=== PATIENT | female | born 1950 | race Hispanic/Latino ===

== ENCOUNTER 2017-06-13 20:34 | Inpatient (IN) | payer MEDICARE ==
[2017-06-13 20:00] VITALS: BP 166/97
[2017-06-13] MEDS ORDERED: ONDANSETRON HCL INJ 2 MG/ML VIAL IV PRN (21:00)
[2017-06-13] MEDS ORDERED: SODIUM CHLORIDE 0.9% 250ML 250 ML IV ONE (21:00)
[2017-06-13 21:20] VITALS: BP 166/97
[2017-06-13] MEDS ORDERED: DEXTROSE 50% SYRINGE 50 ML IV PRN (21:30)
[2017-06-13] MEDS: TRAMADOL HCL 50 MG TAB PO PRN (22:15)
[2017-06-13] MEDS: ACETAMINOPHEN 325 MG TAB PO PRN (22:30)
[2017-06-13] MEDS: ALBUTEROL/IPRATROPIUM 3 ML NEB NEB SCH (23:30)
[2017-06-13] MEDS: PIPER-TAZ 3.375 GM 50 ML IV SCH (23:36)
[2017-06-14] VITALS: BP 159/76
[2017-06-14] MEDS ORDERED: LEVEMIR100 UNIT/1 SQ (02:33)
[2017-06-14] MEDS ORDERED: MONTELUKAST SOD10 MG PO (02:33)
[2017-06-14] MEDS ORDERED: CLINDAMYCIN HC150 MG PO (02:33)
[2017-06-14] MEDS ORDERED: TRADJENTA5 MG PO (02:33)
[2017-06-14] MEDS ORDERED: METFORMIN HCL500 MG PO (02:33)
[2017-06-14] MEDS ORDERED: ULTRAM50 MG PO (02:33)
[2017-06-14] MEDS ORDERED: GABAPENTIN300 MG PO (02:33)
[2017-06-14] MEDS ORDERED: PANTOPRAZOLE SO40 MG PO (02:33)
[2017-06-14] MEDS ORDERED: LISINOPRIL10 MG PO (02:33)
[2017-06-14] MEDS: ALBUTEROL/IPRATROPIUM 3 ML NEB NEB SCH ×5 (03:15→19:15)
[2017-06-14 04:00] VITALS: BP 145/75
[2017-06-14] MEDS: TRAMADOL HCL 50 MG TAB PO PRN ×2 (04:36→09:06)
[2017-06-14] MEDS: PIPER-TAZ 3.375 GM 50 ML IV SCH (06:30)
[2017-06-14 06:44] LABS: BASOPHILS # (AUTO) 0.1 (0.0-0.1); BASOPHILS % 0.6 % (0.0-1.0); EOSINOPHILS # (AUTO) 0.2 (0.0-0.4); HEMATOCRIT 42.6 % (34.2-44.1); HEMOGLOBIN 14.2 g/dL (12.0-16.0); LYMPHOCYTES # (AUTO) 1.6 (1.0-3.2); LYMPHOCYTES % 15.3 % (18.0-39.1); MEAN CORPUSCULAR HEMOGLOBIN 28.7 pg (28-32); MEAN CORPUSCULAR HGB CONC 33.3 g/dL (31-35); MEAN CORPUSCULAR VOLUME 86.1 fL (81-99); MONOCYTES # (AUTO) 1.2 (0.2-0.8); MONOCYTES % 10.9 % (4.4-11.3); NEUTROPHILS # (AUTO) 7.5 (2.1-6.9); NEUTROPHILS % 70.8 % (38.7-80.0); PLATELET COUNT 266 x10e3/uL (140-360); RED BLOOD COUNT 4.95 x10e6/uL (3.6-5.1); RED CELL DISTRIBUTION WIDTH 13.1 % (11.7-14.4)
[2017-06-14 07:00] LABS: ANION GAP 13.4 mmol/L (8-16); BLOOD UREA NITROGEN 7 mg/dL (7-26); BUN/CREATININE RATIO 10 (6-25); CALCIUM 8.9 mg/dL (8.4-10.2); CARBON DIOXIDE 24 mmol/L (22-29); CHLORIDE 105 mmol/L (98-107); CREATININE, SERUM 0.72 mg/dL (0.57-1.11); EST GLOMERULAR FILTRATION RATE > 60 ML/MIN (60-); GLUCOSE 148 mg/dL (74-118); POTASSIUM 3.4 mmol/L (3.5-5.1); SODIUM 139 mmol/L (136-145)
[2017-06-14] MEDS: INSULIN REGULAR, HUMAN 100 UNIT/1 ML 3ML VIAL SQ SCH ×4 (07:30→21:33)
[2017-06-14 07:58] VITALS: BP 133/75
[2017-06-14 11:45] VITALS: BP 134/72
[2017-06-14] MEDS: ACETAMINOPHEN 325 MG TAB PO PRN (12:37)
[2017-06-14] MEDS: PIPERACILLIN/TAZOBAC 3.375 GM in SODIUM CHLORIDE 0.9% 100 ML IV SCH ×2 (14:52→21:33)
[2017-06-14] MEDS ORDERED: POTASSIUM CHLORIDE 20 MEQ TAB CR PO STA (15:59)
[2017-06-14] MEDS: FLUTICASONE PROPIONATE NASAL SPRAY NS SCH (16:00)
[2017-06-14 16:12] VITALS: BP 137/74
[2017-06-14] MEDS ORDERED: DEXTROSE 50% SYRINGE 50 ML IV PRN (16:15)
--- NOTE | 2017-06-14 17:26 | History and Physical ---
CHIEF COMPLAINT: Shortness of breath. HISTORY OF PRESENT ILLNESS: This is a 67-year-old female with known history of diabetes, hypertension and asthma. She comes in to outside ER with complaints of shortness of breath, cough, congestion and fever. The patient is an outside visitor from [place] and she stated over the last 4-5 days she has been having productive cough and congestion with some fever at home subjectively. She also reports having some underlying wheezing and she does take nebulizers at home. She is not on any chronic home O2. The patient does have a nebulizer machine at home. She denies any chest pain or palpitations. Does report having a headache. The patient is seen and evaluated at bedside on the medical floor, currently doing well with no other issues. Currently, states feeling much better but still has a headache. REVIEW OF SYSTEMS: Pertinent positive: Cough, congestion, fever, headache. Pertinent negative: Denies any chest pain, palpitations, nausea, vomiting, diarrhea, dysuria, hematuria, frequency, urgency lightheadedness, dizziness, abdominal pain, shortness of breath or any other complaints. The rest of the 14-point review of systems have been reviewed with the patient and are negative. ALLERGIES: NO KNOWN DRUG ALLERGIES. HOME MEDICATIONS: Takes gabapentin 300 mg p.o. t.i.d., Levemir 10 units subcu daily, Linagliptin 5 mg a day, lisinopril 10 mg daily, metformin 1000 mg b.i.d. Singular 10 mg daily. Protonix 40 mg daily. Tramadol 50 mg p.o. q.6 h. p.r.n. for pain. PAST MEDICAL HISTORY: Chronic pain, diabetes, hypertension, asthma. PAST SURGICAL HISTORY: Reports none. FAMILY HISTORY: Hypertension, diabetes. SOCIAL HISTORY: No drugs, no alcohol, does not smoke. Good social support. LABORATORY DATA: Show white count of 10.6, hemoglobin 14.2, hematocrit 43, platelets 266,000. Chemistry: Sodium 139, potassium 3.4, chloride 105, bicarb 24, anion gap 13, BUN 7, creatinine 0.7, glucose 148, calcium 8.9. Her troponins were negative at the outside ER. D-dimer was negative, less than 100. BNP was 34. Chemistries were normal at the outside ER. Her white count and CBC were all normal. Her flu was negative. Microbiology: None. IMAGING: Her chest x-ray showed no acute findings. PHYSICAL EXAMINATION VITAL SIGNS: Temperature 98.6, pulse 66, respiratory rate 16, blood pressure 134/72, oxygen saturation 95% on room air. GENERAL: In no acute distress, alert and oriented x3, cooperative on examination. HEENT: Head is normocephalic, atraumatic. Eyes: Pupils equal, round and reactive to light bilaterally. Extraocular movements intact bilaterally. Throat with no evidence of erythema or exudates in the posterior pharynx. Has poor dentition. NECK: Supple with good range of motion. PULMONARY: Clear to auscultation bilaterally. No wheezing, no rales, no rhonchi. No . CARDIOVASCULAR: Positive S1 and S2, no murmurs, rubs or gallops appreciated. ABDOMEN: Soft, nondistended, nontender on palpation. Bowel sounds were present. MUSCULOSKELETAL: Strength 5/5 throughout, no evidence of musculoskeletal deficit on exam. No weakness appreciated. NEUROLOGIC: Cranial nerves II-XII grossly intact. No evidence of any neurological deficit on examination. SKIN: Intact. Warm to touch. Good capillary refill. EXTREMITIES: No edema. Good range of motion throughout. PSYCHIATRIC: Normal affect and mood. ASSESSMENT AND PLAN 1. Cough, congestion, likely some underlying viral etiology with possible community-acquired pneumonia -- put on IV Zosyn, nebulizer treatments, low-dose steroids. 2. Asthma exacerbation -- has very mild wheezing. Continue with nebulizer treatments, steroids and antibiotics. 3. Type 2 diabetes -- long acting Levemir, insulin sliding scale, Accu-Cheks. 4. Hypokalemia. Replace. 5. Hypertension -- stable, continue same home medications. 6. Prophylaxis -- Lovenox. 7. Fluids, electrolytes, nutrients -- hydration, diabetic diet. DISPOSITION: Inpatient. DISCHARGE PLANNING: If the patient is doing well, likely discharge home tomorrow. This seems to be more of a viral etiology more than anything. She could have been really discharged from the outside ER instead of being admitted. The patient is not on any home oxygen. Job#: [id number]
[2017-06-14] MEDS: ENOXAPARIN SOD INJ 40 MG/0.4 ML SYR SC SCH (17:32)
[2017-06-14] MEDS: HYDROCODONE/APAP 5MG-325MG TAB PO PRN (17:32)
[2017-06-14] MEDS: PREDNISONE 5 MG TAB PO SCH (17:32)
[2017-06-14 20:00] VITALS: BP 142/76
[2017-06-14] MEDS: GABAPENTIN 300 MG CAP PO SCH (21:33)
[2017-06-15] VITALS (7 sets, daily range): BP systolic 117–162; BP diastolic 66–86
[2017-06-15] MEDS: ALBUTEROL/IPRATROPIUM 3 ML NEB NEB SCH ×7 (00:30→23:22)
[2017-06-15] MEDS: PIPERACILLIN/TAZOBAC 3.375 GM in SODIUM CHLORIDE 0.9% 100 ML IV SCH ×3 (05:13→21:08)
[2017-06-15] MEDS: INSULIN REGULAR, HUMAN 100 UNIT/1 ML 3ML VIAL SQ SCH ×4 (07:30→20:23)
[2017-06-15 07:49] LABS: BASOPHILS # (AUTO) 0.1 (0.0-0.1); BASOPHILS % 0.8 % (0.0-1.0); EOSINOPHILS # (AUTO) 0.2 (0.0-0.4); EOSINOPHILS % 3.1 % (0.0-6.0); HEMOGLOBIN 14.1 g/dL (12.0-16.0); LYMPHOCYTES # (AUTO) 2.6 (1.0-3.2); LYMPHOCYTES % 36.2 % (18.0-39.1); MEAN CORPUSCULAR HEMOGLOBIN 28.5 pg (28-32); MEAN CORPUSCULAR HGB CONC 32.8 g/dL (31-35); MONOCYTES # (AUTO) 0.7 (0.2-0.8); MONOCYTES % 9.8 % (4.4-11.3); NEUTROPHILS # (AUTO) 3.5 (2.1-6.9); NEUTROPHILS % 49.7 % (38.7-80.0); PLATELET COUNT 276 x10e3/uL (140-360); RED BLOOD COUNT 4.94 x10e6/uL (3.6-5.1); RED CELL DISTRIBUTION WIDTH 13.2 % (11.7-14.4)
[2017-06-15 08:09] LABS: ANION GAP 10.8 mmol/L (8-16); BLOOD UREA NITROGEN 10 mg/dL (7-26); BUN/CREATININE RATIO 14 (6-25); CALCIUM 8.6 mg/dL (8.4-10.2); CARBON DIOXIDE 25 mmol/L (22-29); CHLORIDE 111 mmol/L (98-107); CREATININE, SERUM 0.74 mg/dL (0.57-1.11); EST GLOMERULAR FILTRATION RATE > 60 ML/MIN (60-); GLUCOSE 95 mg/dL (74-118); POTASSIUM 3.8 mmol/L (3.5-5.1); SODIUM 143 mmol/L (136-145)
[2017-06-15] MEDS: MONTELUKAST SODIUM 10 MG TAB PO SCH (08:19)
[2017-06-15] MEDS: FLUTICASONE PROPIONATE NASAL SPRAY NS SCH (08:19)
[2017-06-15] MEDS: PANTOPRAZOLE SOD 40 MG TABEC PO SCH (08:19)
[2017-06-15] MEDS: PREDNISONE 5 MG TAB PO SCH (08:19)
[2017-06-15] MEDS: LISINOPRIL 10 MG TAB PO SCH (08:19)
[2017-06-15] MEDS: GABAPENTIN 300 MG CAP PO SCH ×3 (08:19→20:22)
[2017-06-15] MEDS: HYDROCODONE/APAP 5MG-325MG TAB PO PRN ×2 (15:44→21:48)
[2017-06-15] MEDS ORDERED: GUAIFENESIN 600MG/DEXTROMETHORPHAN 30MG TABSR PO PRN (15:45)
[2017-06-15] MEDS: GUAIFENESIN/CODEINE 10 ML CUP PO PRN (16:18)
[2017-06-15] MEDS: ENOXAPARIN SOD INJ 40 MG/0.4 ML SYR SC SCH (16:18)
[2017-06-16] VITALS: BP 120/74
[2017-06-16 00:38] VITALS: BP 134/84
[2017-06-16] MEDS: ALBUTEROL/IPRATROPIUM 3 ML NEB NEB SCH ×4 (03:07→15:05)
[2017-06-16 04:00] VITALS: BP 121/68
[2017-06-16] MEDS: HYDROCODONE/APAP 5MG-325MG TAB PO PRN (04:01)
[2017-06-16] MEDS: PIPERACILLIN/TAZOBAC 3.375 GM in SODIUM CHLORIDE 0.9% 100 ML IV SCH ×2 (05:16→14:38)
[2017-06-16] MEDS: GUAIFENESIN/CODEINE 10 ML CUP PO PRN ×2 (05:48→14:38)
[2017-06-16] MEDS: INSULIN REGULAR, HUMAN 100 UNIT/1 ML 3ML VIAL SQ SCH ×3 (07:30→16:30)
[2017-06-16 07:43] VITALS: BP 138/89
[2017-06-16] MEDS: FLUTICASONE PROPIONATE NASAL SPRAY NS SCH (08:00)
[2017-06-16] MEDS: MONTELUKAST SODIUM 10 MG TAB PO SCH (08:00)
[2017-06-16] MEDS: PREDNISONE 5 MG TAB PO SCH (08:00)
[2017-06-16] MEDS: PANTOPRAZOLE SOD 40 MG TABEC PO SCH (08:00)
[2017-06-16] MEDS: GABAPENTIN 300 MG CAP PO SCH ×2 (08:00→15:29)
[2017-06-16] MEDS: LISINOPRIL 10 MG TAB PO SCH (08:01)
[2017-06-16 11:29] VITALS: BP 124/83
[2017-06-16 15:49] VITALS: BP 118/79
[2017-06-16] MEDS: ENOXAPARIN SOD INJ 40 MG/0.4 ML SYR SC SCH (16:41)
--- NOTE | 2017-06-17 02:28 | Discharge Summary ---
FINAL DISCHARGE DIAGNOSES: 1. Acute asthma exacerbation. 2. Cough, congestion, concern for underlying community-acquired pneumonia. 3. Type 2 diabetes. 4. Hypertension. CONSULTANTS: None. VITAL SIGNS: Temperature is 97.5, pulse 83, respiratory rate is 18, blood pressure 124/83, pulse ox 100% on room air. LAB FINDINGS: Showed white count is 7.1, hemoglobin 14, hematocrit is 43, platelets of 276,000. Chemistry: Sodium 143, potassium is 3.8, chloride 111, bicarb 25, anion gap of 10, BUN is 10, creatinine is 0.7, glucose 95, calcium 8.6. MICROBIOLOGY: None. IMAGING STUDIES: None. HOSPITAL COURSE: [age]-old female, who came from [place] to visit family, who has underlying asthma, presented from an outside ER with shortness of breath, cough and congestion, and subjective fever. Patient was admitted, treated for underlying acute exacerbation of asthma as well as underlying community-acquired pneumonia. Patient was on steroids, neb treatments, and antibiotics as well as antitussive medication with much improvement. Patient reports she wants to go home today, states feeling much better. We will discharge her home on oral antibiotics and steroid taper including nebulizing machine and antitussive medications. Patient improved throughout the hospital course with no other complaints. On the day of discharge, vital signs were stable, labs reviewed and stable. Patient was seen, evaluated, and examined thoroughly on the day of discharge with no other complaints. Patient verbalized understanding and agrees with plan of care, to follow up accordingly as an outpatient with the primary care physician. We will give her 3 to 4 physicians phone numbers and addresses that she can follow up with as she does not have a PCP here in [place]. MEDICATIONS: See med reconciliation form including Levaquin 500 mg 1 tab p.o. daily for 10 days, prednisone taper 10 mg to taper down to 5 mg for 8 total days. We are going to give her also nebulizing inhaling machine. We are also going to give her Tessalon Perles as needed. DISPOSITION: To home. CONDITION: Stable. DIET: Diabetic. FOLLOWUP: With her primary care physician in 1 week. Information, phone numbers, and address have been given to the patient for followup with 3 to 4 different physicians in order for her to have post hospital followup. Patient verbalizes understanding. In the event of any worsening symptoms, patient advised to come back to the ED for further evaluation. Discharge summary took greater than 35 minutes. MARELY LOREDO MD Job#: [id number]
== END 2017-06-16 17:34 | disposition home or self-care (01) | DRG 202 ==
LOC: MED/SURG3 20:34
PROVIDERS: ADMIT Internal Medicine; ATTEND Internal Medicine
DX: J45.901 Unspecified asthma with (acute) exacerbation (principal); J18.9 Pneumonia, unspecified organism; E11.9 Type 2 diabetes mellitus without complications; G89.29 Other chronic pain; I10 Essential (primary) hypertension; E87.6 Hypokalemia; Z79.4 Long term (current) use of insulin
CPT/HCPCS: 36415; 80048; 82948; 85025; J1650; J2543; J7050; J7512

== ENCOUNTER 2017-06-22 15:55 | Emergency (ER) | payer MEDICARE ==
[~2017-06-22] VITALS: Ht 149.9 cm; Wt 77.1 kg
[~2017-06-22 15:55] MED LIST: CLINDAMYCIN HC150 MG PO; GABAPENTIN300 MG PO; LEVEMIR100 UNIT/1 SQ; LISINOPRIL10 MG PO; METFORMIN HCL500 MG PO; MONTELUKAST SOD10 MG PO; PANTOPRAZOLE SO40 MG PO; TRADJENTA5 MG PO; ULTRAM50 MG PO
[2017-06-22] MEDS ORDERED: SODIUM CHLORIDE FLUSH 10 ML SYR INJ PRN (17:30)
--- NOTE | 2017-06-22 18:15 | Diagnostic Imaging Report ---
EXAMINATION: Chest, CHEST 2 VIEWS INDICATION: Chest pain COMPARISON: None FINDINGS: LINES: None. Heart: Normal cardiac silhouette. Vascular: The pulmonary vasculature is within normal limits. Mediastinum: No mediastinal, hilar, or axillary mass or lymphadenopathy. Lungs: No parenchymal mass. No focal consolidation. Pleura: No pleural effusion. No pneumothorax. Bones: No acute osseous abnormality. Degenerative changes of the thoracic spine. Soft tissues: Normal. Impression: No acute radiographic abnormality. Signed by: Dr. Rashad Cook M.D. on 06/22/2017 6:12 PM
[2017-06-22 18:52] LABS: BASOPHILS # (AUTO) 0.1 (0.0-0.1); BASOPHILS % 0.6 % (0.0-1.0); EOSINOPHILS # (AUTO) 0.3 (0.0-0.4); EOSINOPHILS % 2.1 % (0.0-6.0); HEMATOCRIT 44.6 % (34.2-44.1); HEMOGLOBIN 14.8 g/dL (12.0-16.0); LYMPHOCYTES % 33.7 % (18.0-39.1); MEAN CORPUSCULAR HEMOGLOBIN 28.4 pg (28-32); MEAN CORPUSCULAR HGB CONC 33.2 g/dL (31-35); MEAN CORPUSCULAR VOLUME 85.6 fL (81-99); MONOCYTES # (AUTO) 0.8 (0.2-0.8); NEUTROPHILS # (AUTO) 6.6 (2.1-6.9); NEUTROPHILS % 56.1 % (38.7-80.0); PLATELET COUNT 365 x10e3/uL (140-360); RED BLOOD COUNT 5.21 x10e6/uL (3.6-5.1); RED CELL DISTRIBUTION WIDTH 12.8 % (11.7-14.4)
[2017-06-22 18:57] LABS: BILIRUBIN,URINE NEGATIVE (NEGATIVE); CLARITY,URINE HAZY (CLEAR); COLOR,URINE YELLOW (YELLOW); KETONES,URINE NEGATIVE (NEGATIVE); LEUKOCYTE ESTERASE ,URINE NEGATIVE (NEGATIVE); NITRITE,URINE NEGATIVE (NEGATIVE); PROTEIN,URINE DIPSTICK NEGATIVE (NEGATIVE); URINE UROBILINOGEN 0.2 mg/dL (0.2 - 1)
[2017-06-22 19:06] LABS: ALANINE AMINOTRANSFERASE 17 IU/L (0-55); ALBUMIN 4.1 g/dL (3.5-5.0); ALKALINE PHOSPHATASE 66 IU/L (40-150); AMYLASE 45 U/L (25-125); ANION GAP 14.6 mmol/L (8-16); BLOOD UREA NITROGEN 16 mg/dL (7-26); BUN/CREATININE RATIO 19 (6-25); CALCIUM 9.3 mg/dL (8.4-10.2); CARBON DIOXIDE 23 mmol/L (22-29); CHLORIDE 108 mmol/L (98-107); CREATINE KINASE 38 IU/L (29-168); CREATININE, SERUM 0.86 mg/dL (0.57-1.11); EST GLOMERULAR FILTRATION RATE > 60 ML/MIN (60-); GLUCOSE 97 mg/dL (74-118); LIPASE 48 U/L (8-78); POTASSIUM 3.6 mmol/L (3.5-5.1); SODIUM 142 mmol/L (136-145)
[2017-06-22 19:12] LABS: TROPONIN I 0.008 ng/mL (0-0.300)
[2017-06-22 19:26] LABS: BACTERIA,URINE FEW /HPF; EPITHELIAL CELLS,URINE MODERATE /LPF; RBC,URINE 0-5 /HPF (0-5); WBC,URINE (MAN) 0-5 /HPF (0-5)
--- NOTE | 2017-06-22 22:00 | Diagnostic Imaging Report ---
EXAM: CT Abdomen and Pelvis WITH contrast INDICATION: Abdominal pain, fever, diarrhea COMPARISON: None. TECHNIQUE: Abdomen and pelvis were scanned utilizing a multidetector helical scanner from the lung base to the pubic symphysis after administration of IV contrast. Coronal and sagittal reformations were obtained. Routine protocol was performed. Scan was performed when during portal venous phase. IV CONTRAST: 100 mL of Isovue-370 ORAL CONTRAST: Water RADIATION DOSE: Total DLP: 489.24 mGy*cm Estimated effective dose: (DLP x 0.015 x size factor) mSv COMPLICATIONS: None FINDINGS: LINES and TUBES: None. LOWER THORAX: Unremarkable HEPATOBILIARY: No focal hepatic lesions. No biliary ductal dilation. GALLBLADDER: No radio-opaque stones or sludge. No wall thickening. SPLEEN: No splenomegaly. PANCREAS: No focal masses or ductal dilatation. ADRENALS: No adrenal nodules KIDNEYS/URETERS: Kidneys enhance symmetrically. No hydronephrosis. No cystic or solid mass lesions. No stones. GI TRACT: No abnormal distention, wall thickening, or evidence of bowel obstruction. Appendix is not clearly identified. There is however no fat stranding or adenopathy in the right lower quadrant to suggest appendicitis. PELVIC ORGANS/BLADDER: The uterus is absent. Bilateral ovaries are unremarkable. LYMPH NODES: No lymphadenopathy. VESSELS: There is mild atherosclerotic disease in the aorta and major arterial branches. PERITONEUM / RETROPERITONEUM: No free air or fluid. BONES: There are degenerative changes in the lumbar spine. SOFT TISSUES: Unremarkable. IMPRESSION: 1. No acute intra-abdominal or pelvic abnormality. Signed by: Dr. Kwabena Lara M.D. on 06/22/2017 9:56 PM
[2017-06-22] MEDS ORDERED: SODIUM CHLORIDE 0.9% 50ML 50 ML ONE (23:51)
[2017-06-22] MEDS ORDERED: IOPAMIDOL 370 MG/ML 200 ML INFUS..BTL INJ ONE (23:51)
[2017-06-23 00:48] VITALS: BP 139/67
== END 2017-06-23 00:51 | disposition home or self-care (01) ==
LOC: ER 15:55
DX: R10.9 Unspecified abdominal pain (principal); R19.7 Diarrhea, unspecified; B34.9 Viral infection, unspecified; I10 Essential (primary) hypertension; E11.9 Type 2 diabetes mellitus without complications; J45.909 Unspecified asthma, uncomplicated
CPT/HCPCS: 36415; 71020; 74177; 80053; 81001; 82150; 82550; 82553; 82948; 83690; 83880; 84484; 85025; 87086; 87400; 93005; 99284; Q9967